=== PATIENT | female | born 1990 | race Caucasian/White ===

== ENCOUNTER 2020-08-23 15:25 | Outpatient (CLI) | payer BC, SELFPAY ==
--- NOTE | ~2020-08-23 | US_ITS ---
EXAMINATION: US OB <= 14 weeks fetus DATE: 08/23/2020 15:58 INDICATION: Routine care and dating of late first trimester . TECHNIQUE: Real-time pelvic ultrasound utilizing both a transvaginal and transabdominal probe was pe rformed. The interpreting radiologist was not present for the study. COMPARISON: None. FINDINGS: The uterus measures 12.5 x 5.9 x 6.2 cm. There is an intrauterine gestational sac. A yolk sac and fe hayes pole are identified. The crown rump length measures 2.1 cm, which correlates with an estimated ge stational age of 8 weeks and 5 days. heart motion is identified measuring 178 beats per minute (bpm) by M-mode Doppler. The right ovary measures 2.5 x 2.3 x 3.0 cm. The left ovary measures 3.0 x 1.6 x 2.5 cm. Vascular ivon w with both arterial and venous waveforms identified in both the left and right ovaries. There is no free fluid in the pelvis. IMPRESSION: 1. Single living fetus with heart rate of 178 bpm. 2. Gestational age by ultrasound of 8 weeks 5 day(s) +/- 5 day(s) with ultrasound estimated date of delivery (ROBERT) of 03/30/2021. Reviewed, dictated and finalized at location A. IMPRESSION: 1. Single living fetus with heart rate of 178 bpm. 2. Gestational age by ultrasound of 8 weeks 5 day(s) +/- 5 day(s) with ultraso und estimated date of delivery (ROBERT) of 03/30/2021.
== END 2020-08-23 15:26 | disposition home or self-care (01) ==
PROVIDERS: PCP Pediatrics; Visit Provider Obstetrics & Gynecology
DX: Z34.91 Encounter for supervision of normal pregnancy, unspecified, first trimester (principal); Z3A.08 8 weeks gestation of pregnancy
CPT/HCPCS: 76801

== ENCOUNTER 2020-11-26 15:34 | Outpatient (CLI) | payer BC, SELFPAY ==
--- NOTE | ~2020-11-26 | US_ITS ---
EXAMINATION: US OB /maternal detail DATE: 11/26/2020 17:03 INDICATION: survey TECHNIQUE: Multiple obstetric sonographic images performed. FINDINGS: No prior studies for comparison. There is a single living fetus in breech presentation. The placenta is posterior without placenta pr evia. Amniotic fluid volume is normal. JARRELL measures 17.3 cm. cardiac activity and movement is noted with a heart rate of 141 beats per minute. The following anatomy was identified as normal: 4 chamber heart 3 vessel cord cord insertion kidneys urinary bladder stomach spine diaphragm ventricles cisterna magna cerebellum The following biometric data were obtained: BPD: 53mm corresponds to gestational age 22 weeks 0 days. Head circumference: 212 mm corresponds to gestational age 23 weeks 2 days. Abdominal circumference: 188 mm corresponds to gestational age 23 weeks 4 days. Femur length: 45 mm corresponds to gestational age 24 weeks 5 days. Head circumference to abdominal circumference ratio: 1.13 (normal range for expected gestational age is 1.05-1.21). Estimated weight: 637 grams +/- 96 grams using Hadlock method, greater than 97th percentile. IMPRESSION: 1: Single living intrauterine with an estimated gestational age of 22weeks 2days by initial ultrasound measurements, with an EDC of 03/30/2021 in breech presentation. 2. Normal survey. 3: Accelerated growth with estimated weight greater than 97th percentile. Reviewed, dictated and finalized at location A. IMPRESSION: 1: Single living intrauterine with an estimated gestational age of 22 weeks 2days by initial ultrasound measurements, with an EDC of 03/30/2021 in br eech presentation. 2. Normal survey. 3: Accelerated growth with estimated weight greater than 97th perc entile.
== END 2020-11-26 15:35 | disposition home or self-care (01) ==
PROVIDERS: PCP Obstetrics & Gynecology; Visit Provider Physician Assistant
DX: Z34.82 Encounter for supervision of other normal pregnancy, second trimester (principal); Z3A.22 22 weeks gestation of pregnancy
CPT/HCPCS: 76805

== ENCOUNTER 2021-01-17 07:30 | Outpatient (RCR) | payer BC, SELFPAY ==
[2021-01-17] MEDS: RHO(D) IMMUNE GLOBULIN 300 MCG/2 ML SYRINGE IM (11:59)
== END 2021-04-16 23:59 | disposition home or self-care (01) ==
LOC: ANHLAB 07:30
PROVIDERS: PCP Obstetrics & Gynecology; Visit Provider Physician Assistant
DX: Z29.13 Encounter for prophylactic Rho(D) immune globulin (principal); O36.0190 Maternal care for anti-D [Rh] antibodies, unspecified trimester, not applicable or unspecified; Z3A.00 Weeks of gestation of pregnancy not specified
CPT/HCPCS: 36415; 85461; 90384; 96372; J2790

== ENCOUNTER 2021-01-17 10:35 | Outpatient (CLI) | payer BC, SELFPAY ==
--- NOTE | ~2021-01-17 | US_ITS ---
EXAMINATION: US OB follow up DATE: 01/17/2021 11:28 INDICATION: Routine care during third trimester TECHNIQUE: Real-time ultrasound of the pelvis was performed. The interpreting radiologist was not pre sent for the study. COMPARISON: 11/26/2020 FINDINGS: There is a single living fetus in vertex presentation. The placenta is posterior. car diac activity and movement are noted. heart rate is 154 beats per minute (bpm). The amnio tic fluid index is 13.9 cm which is normal. The following biometric data were obtained: Biparietal diameter (BPD): 7.3 cm; head circumference (HC): 27.9 cm; abdominal circumference (AC): 25 .6 cm; femur length (FL): 5.5 cm. These measurements are concordant. Estimated weight is 1434 g +/- 215 g, which correlates with the 35th percentile when 03/30/2021 is used as estimated date of delivery. As single measurements, these parameters are each equal to the following estimated gestational ages w ith ranges of +/- 2 standard deviations: BPD: 29 weeks 4 days ( 27 weeks 2 days - 31 weeks 5 days). HC: 30 weeks 4 days ( 27 weeks 4 days - 33 weeks 4 days). AC: 29 weeks 6 days ( 27 weeks 5 days - 32 weeks 0 days). FL: 29 weeks 1 days ( 27 weeks 1 days - 31 weeks 2 days). estimated gestational age based solely on measurements from this exam is 29 weeks 6 days +/- 2 weeks 1 days. IMPRESSION: 1. Single living fetus in vertex presentation. 2. Estimated weight is 1434 g +/- 215 g, which correlates with the 35th percentile when 021 is used as estimated date of delivery. Reviewed, dictated and finalized at location A. IMPRESSION: 1. Single living fetus in vertex presentation. 2. Estimated weight is 1434 g +/- 215 g, which correlates with the 35th p ercentile when 03/30/2021 is used as estimated date of delivery.
== END 2021-01-17 10:36 | disposition home or self-care (01) ==
PROVIDERS: PCP Obstetrics & Gynecology; Visit Provider Physician Assistant
DX: Z34.93 Encounter for supervision of normal pregnancy, unspecified, third trimester (principal); Z3A.29 29 weeks gestation of pregnancy
CPT/HCPCS: 76816

== ENCOUNTER 2021-03-26 19:35 | Inpatient (IN) | payer BC, SELFPAY ==
--- NOTE | 2021-03-26 20:00 | PC.NURSE ---
Addendum entered by Libertad Willett RN 03/27/21 02:40: PT STATES THIS IS DUE TO DR SHEPARD NO LONGER SEEING CLIENTS. Original Note: PT STATES THAT PT HAS NOT BEEN TO AN OB APPOINTMENT IN 3 WEEKS.
[2021-03-26 21:30] VITALS: BMI 32.5
[2021-03-26 21:45] LABS: Basophils Percent Auto 0.2 % (0.2-1.2); Eosinophils Absolute Auto 0.1 K/mm3 (0-0.3); Eosinophils Percent Auto 0.7 % (0-4.4); Hemoglobin 10.2 g/dL (12.0-15.0); Immature Granulocyte Absolute 0.04 K/mm3 (0.00-0.031); Immature Granulocyte Percent A 0.4 % (0-0.5); Immature Platelet Fraction Pct 15.2 % (0.9-11.2); Lymphocytes Absolute Auto 1.91 K/mm3 (0.9-3.2); Lymphocytes Percent Auto 18.3 % (18.3-44.2); Mean Corpuscular HGB Conc 32.9 g/dl (32-36); Mean Corpuscular Hemoglobin 27.5 pg (26-34); Mean Corpuscular Volume 83.6 fl (80-100); Mean Platelet Volume 13.1 fl (7.4-10.4); Monocytes Absolute Auto 0.6 K/mm3 (0.1-0.6); Monocytes Percent Auto 6.1 % (2.6-8.5); Neutrophils Absolute Auto 7.8 K/mm3 (1.3-6.7); Neutrophils Percent Auto 74.3 % (45.5-73.1); Platelet Count Result 142 k/mm3 (150-375); Red Blood Count 3.71 M/mm3 (4.2-5.4); Red Cell Distribution Width 16.1 % (11.5-14.5); White Blood Count 10.5 K/mm3 (4.5-10.0)
[2021-03-27] VITALS (99 sets, daily range): BP systolic 64–166; BP diastolic 34–128; PULSE 47–113; RESP 16–18; TEMP 36.6–37; O2SAT 80–100
[2021-03-27] MEDS: CALCIUM CARBONATE (TUMS) 500 MG (200 MG ELEMENTAL) PO ×2 (00:15→07:22)
--- NOTE | 2021-03-27 00:36 | LDADM ---
This patient, Fozia Cunningham, was admitted to Labor/Delivery/Recovery 107 on 03/26/21 at 19:35. Plans for labor, pain management and were discussed with patient. Patient/family oriented to hospital policies and general routines including ID bracelet, bed and alarms, visiting hours, pain management, procedures, bathroom and other care routines, personal items, smoking policy, room service/diet and guest tray routines, security routines, and visiting hours. Patient/Family are encouraged to report perceived risks to care and to ask questions if they do not understand what they are told or what they should do. See OBIX for further documentation.
--- NOTE | 2021-03-27 02:36 | PC.NURSE ---
PT STATES PT LAST SMOKED MARAJUANA ON 03/25.
[2021-03-27] MEDS: AMPICILLIN 2 GM/NS 100 ML 2 GM/100 ML BAG IVPB (03:15)
[2021-03-27] MEDS: LACTATED RINGERS 1,000 ML 125 ML IV CONT ×2 (03:20→10:05)
[2021-03-27 03:58] LABS: Amphetamine Screen Urine Negative (Negative); Barbiturate Screen Urine Negative (Negative); Benzodiazepines Screen Urine Negative (Negative); Cannabinoid Screen Urine Positive (Negative); Cocaine Screen Urine Negative (Negative); Methadone Screen Urine Negative (Negative); Opiate Screen Urine Negative (Negative); Phencyclidine Screen Urine Negative (Negative)
[2021-03-27] MEDS: OXYTOCIN 30 UNITS/NS 500 ML 30 UNITS/500 ML BAG IV CONT (05:47)
[2021-03-27 06:58] LABS: Rapid Plasma Reagin Non-Reactive (NonReactive)
[2021-03-27] MEDS: AMPICILLIN 1 GM/NS 50 ML 1 GM/50 ML BAG IVPB ×2 (07:22→11:36)
--- NOTE | 2021-03-27 10:03 | WPDANESEPP ---
Anes - Eval Pre Procedure Procedure: labor epidural Date/Time: 03/27/21 10:03 Pre Op Diagnosis: Contractions Patient Data Age: 30 Gender: F Height: 1.75 m Weight: 100 kg Last Vital Signs Temp 36.7 C 03/27/21 09:30 Pulse 61 03/27/21 10:01 BP 134/82 03/27/21 10:01 Allergies Allergy/AdvReac Type Severity Reaction Status Date / Time clove Allergy Hives Verified 03/16/21 14:44 Home Medications Medication Instructions Recorded Confirmed Type PNV cmb#95-ferrous fumarate-FA 1 tablet PO DAILY 03/16/21 03/16/21 History [] Laboratory Tests 03/26/21 03/26/21 03/26/21 21:35 21:35 21:35 WBC 10.5 K/mm3 H K/mm3 (4.5-10.0) RBC 3.71 M/mm3 L M/mm3 (4.2-5.4) Hgb 10.2 g/dL L g/dL (12.0-15.0) Hct 31.0 % L % (37.0-47.0) MCV 83.6 fl fl (80-100) MCH 27.5 pg pg (26-34) MCHC 32.9 g/dl g/dl (32-36) RDW 16.1 % H % (11.5-14.5) Plt Count 142 k/mm3 L k/mm3 (150-375) MPV 13.1 fl H fl (7.4-10.4) Immature Gran % (Auto) 0.4 % % (0-0.5) Neut % (Auto) 74.3 % H % (45.5-73.1) Lymph % (Auto) 18.3 % % (18.3-44.2) Teller % (Auto) 6.1 % % (2.6-8.5) Eos % (Auto) 0.7 % % (0-4.4) Baso % (Auto) 0.2 % % (0.2-1.2) Lymph # (Auto) 1.91 K/mm3 K/mm3 (0.9-3.2) Teller # (Auto) 0.6 K/mm3 K/mm3 (0.1-0.6) Eos # (Auto) 0.1 K/mm3 K/mm3 (0-0.3) Baso # (Auto) 0.0 K/mm3 K/mm3 (0.0-0.1) Abs Immat Gran (auto) 0.04 K/mm3 H K/mm3 (0.00-0.031) Absolute Neuts (auto) 7.8 K/mm3 H K/mm3 (1.3-6.7) Absolute Nucleated RBC 0.0 K/mm3 K/mm3 (0.0-0.012) Nucleated RBC % 0.0 % % (0.0-0.2) % Immature Plt Fraction 15.2 % H % (0.9-11.2) Urine Opiates Screen Urine Methadone Screen Ur Barbiturates Screen Ur Phencyclidine Scrn Ur Amphetamine Screen U Benzodiazepines Scrn Urine Cocaine Screen U Cannabinoids Screen RPR Non-reactive (NonReactive) Blood Type A Negative Antibody Screen Negative 03/27/21 03:24 WBC RBC Hgb Hct MCV MCH MCHC RDW Plt Count MPV Immature Gran % (Auto) Neut % (Auto) Lymph % (Auto) Teller % (Auto) Eos % (Auto) Baso % (Auto) Lymph # (Auto) Teller # (Auto) Eos # (Auto) Baso # (Auto) Abs Immat Gran (auto) Absolute Neuts (auto) Absolute Nucleated RBC Nucleated RBC % % Immature Plt Fraction Urine Opiates Screen Negative (Negative) Urine Methadone Screen Negative (Negative) Ur Barbiturates Screen Negative (Negative) Ur Phencyclidine Scrn Negative (Negative) Ur Amphetamine Screen Negative (Negative) U Benzodiazepines Scrn Negative (Negative) Urine Cocaine Screen Negative (Negative) U Cannabinoids Screen Positive A (Negative) RPR Blood Type Antibody Screen Patient hx anesthesia problems: none Family hx anesthesia problems: none Results Review: All pre-operative results and documents have been reviewed as part of the pre-operative evaluation. [facility] Family History Family History Other No pertinent family history Social History Social History Smoking packs per day: 0.5 Smoking cigarettes per day: 10.0 Years smoked: 10 Smoking pack-years: 5.00 Smoking status: Current every day smoker Substance use: current Spiritual care concerns: No Exam Day of Procedure 03/27/21 10:03 Patient weight: obese Heart: regular rate and rhythm Lungs: clear to auscul
--- NOTE | 2021-03-27 13:30 | WPDOBADMIT ---
Obstetrics - Admit Note Admission Note: record reviewed. No pertinent additions to the history and/or any subsequent changes in the physical findings that are not consistent with the expected course of the were found. No care for last 3 weeks do to staffing manager not in current practice. Patient has prenatals reviewed with patient. AROm clear fluid. Additions to the history and/or subsequent changes in the physical findings follow. None.
--- NOTE | 2021-03-27 13:31 | P.PCNOB_ITS ---
OB - Delivery Note Procedure Delivery date: 03/27/21 Procedure: events: Labor Induction Intrapartal events: None Induction method: AROM and per pitocin protocol Route of delivery: Laceration Description: None Specimen: No Quantitative Blood Loss (ml): 150 Anesthesia type: Epidural Disposition: floor Rosamond Baby Date of : 03/27/21 Time of : 13:08 Weeks of gestation at delivery: 39 gender: Female Weight (pounds): 7 Weight (ounces): 5 presentation: vertex position: Left Occiput Anterior Placenta delivery description: Spontaneous cord vessel description: 3 Vessels, Nuchal Cord, Loose and Clamped/Cut score one minute: 8 score five minutes: 9
[2021-03-27] MEDS: OXYTOCIN 30 UNITS/NS 500 ML 30 UNITS/500 ML BAG 125 UNITS IV CONT (13:51)
[2021-03-27] MEDS: BENZOCAINE 20% AER SPR (*SP) 56 GM CAN 1 SPRAY TOPICAL (15:04)
[2021-03-27] MEDS: WITCH HAZEL 40 PADS 1 PAD TOPICAL (15:04)
--- NOTE | 2021-03-27 16:46 | OBPPTRN ---
1629-Patient transferred to post room #280 via wheelchair. Support person present. Oriented to unit, room, information board, rooming in, admission packet and security measures. Patient verbalizes understanding.
[2021-03-27] MEDS: IBUPROFEN 600 MG TABLET PO (23:01)
[2021-03-28] VITALS: BP 115/64; PULSE 72; RESP 18; TEMP 36.7
[2021-03-28 03:45] VITALS: BP 112/63; PULSE 65; RESP 16; TEMP 36.9
[2021-03-28 05:16] LABS: Hemoglobin 8.7 g/dL (12.0-15.0)
[2021-03-28 08:00] VITALS: BP 137/89; PULSE 58; RESP 18; TEMP 36.3; O2SAT 99
[2021-03-28] MEDS: IBUPROFEN 600 MG TABLET PO (08:49)
[2021-03-28] MEDS: DOCUSATE SODIUM 100 MG CAPSULE PO (08:50)
[2021-03-28] MEDS: MULTIVIT/MIN/PREN/FOL AC/IRON TABLET 1 TAB PO (08:50)
[2021-03-28] MEDS: POLYSACCHARIDE IRON COMPLEX 150 MG CAPSULE PO (08:50)
--- NOTE | 2021-03-28 10:03 | PM.OBPNVD ---
OB - PN: Subj Subjective Date/time seen: 03/28/21 10:03 doing well no complaints. desires home OB - PN: Obj Data Labs CBC & Chem 7: 03/28/21 03:36 Labs: Laboratory Results - last 24 hr 03/28/21 03/28/21 03:36 03:36 Hgb 8.7 L Hct 28.0 L Blood Type A Negative Antibody Screen TNP OB - PN A/P Assessment and Plan (1) (normal spontaneous vaginal delivery): Code(s): O80 - Encounter for full-term uncomplicated delivery Status: Acute Assessment and Plan: d/c home f/u in office Time Spent With Patient Time: Total time spent is greater than 50% in coordination of care (as documented) at patient's floor/unit and/or counseling patient: Exam Narrative: ff below umbilicus
--- NOTE | 2021-03-28 10:07 | PM.OBDSVD ---
DS: Admitting Diagnosis Discharge Date 03/28/21 Admitting Diagnosis induction of labor OB - DS: Summary OB Procedures : None OB Procedures Intrapartum: Spontaneous Vag Delivery OB Procedures: : None Peripartum Data Delivery Method: Natural Vaginal complications: none Time Spent with Patient Time attestation: Total time spent providing and/or coordinating discharge services: DS: Data Data Completed and Pending Labs on day of discharge: Labs from last 24 hours 03/28/21 03/28/21 03:36 03:36 Hgb 8.7 L Hct 28.0 L Blood Type A Negative Antibody Screen TNP Screen Pending Baby's Blood Type Pending Baby's DARION Pending Doses of RhIg Required Pending Discharge Plan Discharge Attending physician on discharge: Narinder Encinas Discharging Clinician: Narinder Encinas Patient Disposition: Home, Self-Care Activity: may shower and pelvic rest Diet: regular Patient Instructions: Antibiotic Form Stand Alone Forms: General Discharge Information Follow-up/Referrals: Narinder Encinas MD [Physician] - Discharge Medications: Continued PNV cmb#95-ferrous fumarate-FA [] 28 mg iron- 800 mcg Tablet 1 tablet PO DAILY RF: 0 Date of admission: 03/26/21 19:35 Primary Care Provider: PHYSICIAN,PUBLIC INFORMATION COORDINATOR Admitting Provider: Narinder Encinas Attending physician on admission: Narinder Encinas Condition: Stable
--- NOTE | 2021-03-28 11:03 | PCCCNOTE ---
Addendum entered by MAURA Breaux 03/28/21 13:36: 1340: CANTS form completed and faxed to [facility] local office ( ). Original Note: Met with pt. and FOJacobo Jacintoon at bedside. Pt. tested positive for THC on her UDS. Baby UDS was negative; no meconium ordered. Pt. anticipated to discharge this afternoon. Pt. reports she, , three other children, and FOB will be living with her father in [place]. Pt. reports having a large support system and has all necessary supplies. Pt. reports being established with both [employer] and [employer]. Pt. reports having a case opened with [facility] in Jun 2020 and just got her three children back in her custody March 12. Pt. reports they are in a program of 6 months of aftercare with [facility]. resources provided. Report made with Quintin Dominique at [facility] - Intake ID #[id number]. Quintin reports it is okay to discharge baby today and their current rn case mgr with [facility] will do follow up at their home. [address]
--- NOTE | 2021-03-28 12:06 | WPDANLDPN2 ---
Anes-Prog Note L&D Date/Time: 03/28/21 12:06 Comfortable throughout: labor and delivery Neuraxial method: epidural Epidural/Spinal procedure site: clean & non-tender Neuro status: Neuro function grossly intact. Cardiovascular status: normal Respiratory status: normal Airway patency: baseline Mental status: baseline Post-Op hydration status: normal Vital Signs: Last Vital Signs Temp 36.3 C L 03/28/21 08:00 Pulse 58 L 03/28/21 08:00 Resp 18 03/28/21 08:00 BP 137/89 03/28/21 08:00 Pulse Ox 99 03/28/21 08:00 Pain score (VAS): 05/13 I/O: Intake & Output 03/27/21 03/28/21 03/28/21 23:59 07:59 15:59 Intake Total 240 Output Total 125 Balance -125 240 Post-procedural complaints: none Patient feedback: Patient satisfied with anesthetic care.
[2021-03-28 12:35] VITALS: BP 143/91; PULSE 66; RESP 18; TEMP 36.2; O2SAT 100
[2021-03-30 08:15] VITALS: BP 129/76; PULSE 71; RESP 20; TEMP 36.4; O2SAT 100
== END 2021-03-28 15:00 | disposition home or self-care (01) | DRG 560 ==
LOC: ANHLDR 20:37 → ANHOB2 03-27 16:32
PROVIDERS: Admitting Provider Obstetrics & Gynecology; Visit Provider Obstetrics & Gynecology
DX: O99.334 Smoking (tobacco) complicating childbirth (principal); F17.210 Nicotine dependence, cigarettes, uncomplicated; O69.81X0 Labor and delivery complicated by cord around neck, without compression, not applicable or unspecified; Z3A.39 39 weeks gestation of pregnancy; Z37.0 Single live birth
CPT/HCPCS: 36415; 80307; 85014; 85018; 85025; 85055; 85460; 85461; 86592; 86850; 86900; 86901; 90384; A9270; J0290; J2590; J2790; J2795; J7120

== ENCOUNTER 2025-01-21 08:36 | Emergency (ER) | payer BC, SELFPAY ==
--- NOTE | ~2025-01-21 | XR_ITS ---
X-rays right ankle Indication: Injury Comparison: None Technique: 4 views right ankle Findings/Impression: 1. Nondisplaced avulsion fracture lateral malleolar tip. Overlying soft tissue swelling. 2. No other fracture noted. 3. Ankle mortise maintained. Reviewed, dictated and finalized at location R.
[2025-01-21 08:49] VITALS: BP 117/73; PULSE 63; RESP 16; TEMP 36.4; O2SAT 100
--- NOTE | 2025-01-21 11:13 | ED_ITS ---
HPI - General Adult General Chief complaint: Extremity Injury, Lower Stated complaint: right ankle pain Time Seen by Provider: 01/21/25 08:52 History of Present Illness HPI narrative: 34-year-old female presents to the emergency department for evaluation for right ankle pain. Patient was playing softball when she rolled her ankle while running. Patient does have swelling of the lateral ankle. Patient denies striking head denies any loss of consciousness. Patient denies any proximal tib-fib pain. Patient denies striking head denies loss consciousness. Related Data Home Medications ?Medication ?Instructions ?Recorded ?Confirmed ?Last Taken ?Type vit no.95-ferrous 1 tablet PO DAILY 03/16/21 03/16/21 Unknown History fumarate 28 mg-folic acid 800 mcg tablet () Allergies Allergy/AdvReac Type Severity Reaction Status Date / Time clove Allergy Hives Verified 01/21/25 09:07 Review of Systems Review of Systems: All systems reviewed & are unremarkable except as noted in HPI and below PMFSH Family History Family History Other No pertinent family history Social History Social History Smoking packs per day: 0.5 Smoking cigarettes per day: 10.0 Years smoked: 10 Smoking pack-years: 5.00 Smoking status: Current every day smoker Substance use: current Spiritual care concerns: No Exam Narrative: APPEARANCE: Well appearing, no pain, no distress, well-nourished. HEAD: normocephalic, atraumatic. EYES: PERRLA/EOMI, conjunctivae clear. NOSE: Normal no drainage EARS:TMS clear with good light reflex. THROAT: Pharynx clear, no exudate. NECK: Supple. No adenopathy, no masses. RESPIRATORY: Airway patent, respirations nonlabored. Clear to auscultation bi laterally, no rales, rhonchi, wheezing. CARDIOVASCULAR: Regular rate and rhythm without murmurs rubs or gallops. ABDOMINAL: Soft, nontender, nondistended, normal bowel sounds MUSCULOSKELETAL: Right lateral ankle tenderness to palpation NEURO: Alert. Cranial nerves II through XII intact. Good gait. Good coordination SKIN: Warm, dry. Normal Color Course Vital Signs Vital signs: Vital Signs Temperature 97.6 F 01/21/25 08:49 Pulse Rate 63 01/21/25 08:49 Respiratory Rate 16 01/21/25 08:49 Blood Pressure 117/73 01/21/25 08:49 Pulse Oximetry 100 01/21/25 08:49 Oxygen Delivery Room Air 01/21/25 08:49 Temperature 97.6 F 01/21/25 08:49 Pulse Rate 64 01/21/25 12:01 Respiratory Rate 18 01/21/25 12:01 Blood Pressure 138/72 01/21/25 12:01 Pulse Oximetry 100 01/21/25 12:01 Oxygen Delivery Room Air 01/21/25 08:49 Medical Decision Making MDM Narrative Medical decision making narrative: 34-year-old female presents to the emergency department for evaluation for right ankle pain. X-ray was concerning for avulsion fracture. Patient does have of lateral ankle ecchymosis with no proximal tib-fib tenderness to palpation. Patient denies any other pain or injury. Patient's leg is neurovascularly intact. I do suspect an ankle strain resulting in an avulsion fracture. Patient was placed in a short-leg splint provided crutches for nonweightbearing. Patient was updated the results of her workup. Patient left close follow-up with Orthopedics. All questions concerns were addressed. Differential Diagnosis Differential Diagnosis: Ankle sprain, ankle fracture Vital Signs Vital Signs: Vital Signs Temperature 97.6 F 01/21/25 08:49 Pulse Rate 63 01/21/25 08:49 Respiratory Rate 16 01/21/25 08:49 Blood Pressure 117/73 01/21/25 08:49 Pulse Oximetry 100 01/21/25 08:49 Oxygen Delivery Room Air 01/21/25 08:49 Temperature 97.6 F 01/21/25 08:49 Pulse Rate 64 01/21/25 12:01 Respiratory Rate 18 01/21/25 12:01 Blood Pressure 138/72 01/21/25 12:01 Pulse Oximetry 100 01/21/25 12:01 Oxygen Delivery Room Air 01/21/25 08:49 Imaging Data Radiologist's impression: X-rays right ankle Indication: Injury Comparison: None Technique: 4 views right ankle Findings/Impression: 1. Nondisplaced avulsion fracture lateral malleolar tip. Overlying soft tissue swelling. 2. No other fracture noted. 3. Ankle mortise maintained. Discharge Plan Discharge Clinical Impression: Avulsion fracture of ankle Patient Disposition: Home Condition: Stable Instructions: Antibiotic Form, Ankle Fracture (DC), Crutch Instructions (ED), Splint Care (ED) Additional Instructions: Splint care as directed. Crutches for nonweightbearing. Tylenol and ibuprofen for pain control. Have close follow-up with Orthopedics. If you have any worsening symptoms then please call or return to the emergency department. Patient Language: Salvadorean Prescriptions: No Action PNV no.95-ferrous fumarate-FA [] 28 mg iron- 800 mcg Tablet 1 tablet PO DAILY Follow-up/Referrals: Trino Fletcher MD [Physician, Orthopedics] PHYSICIAN,[facility]ER [Primary Care Provider, Internal Medicine]
[2025-01-21] MEDS: ACETAMINOPHEN 500 MG TABLET 1000 MG PO (11:25)
[2025-01-21] MEDS: IBUPROFEN 600 MG TABLET PO (11:26)
[2025-01-21 12:01] VITALS: BP 138/72; PULSE 64; RESP 18; O2SAT 100
== END 2025-01-21 12:02 | disposition home or self-care (01) ==
PROVIDERS: Emergency Provider Emergency Medicine
DX: S82.64XA Nondisplaced fracture of lateral malleolus of right fibula, initial encounter for closed fracture (principal); X50.0XXA Overexertion from strenuous movement or load, initial encounter; F17.210 Nicotine dependence, cigarettes, uncomplicated
CPT/HCPCS: 29515; 73610; 99284; A9270

== ENCOUNTER 2025-02-02 00:05 | Emergency (ER) | payer BC, SELFPAY ==
--- NOTE | ~2025-02-02 | CT_ITS ---
CT HEAD NON-CONTRAST Clinical History: new onset seizures Comparison: None Technique: Unenhanced axial images skull base to vertex Coronal, sagittal reformats CT images acquired with automatic exposure control for dose reduction DLP: 530 mGy-cm Findings: Sulci, ventricles: Unremarkable. No intracerebral hemorrhage. No evidence acute territorial infarct. No mass effect, midline shift. Bony calvarium intact. Visualized paranasal sinuses: Clear. Mastoid air cells: Clear. IMPRESSION: 1. No acute intracranial findings. Reviewed, dictated and finalized at location R.
[2025-02-02 00:02] VITALS: BP 134/90; PULSE 88; RESP 15; TEMP 36.8; O2SAT 100
[2025-02-02 00:41] VITALS: BP 144/102; PULSE 88; RESP 12; TEMP 36.4; O2SAT 100
--- NOTE | 2025-02-02 01:05 | ED.SEIZURE ---
HPI - Seizure General Chief Complaint: Seizure Stated Complaint: seizure Time Seen by Provider: 02/02/25 00:53 Source: patient and EMS Mode of arrival: EMS Limitations: no limitations History of Present Illness HPI Narrative: This is a 34-year-old female with history of polysubstance abuse who presents to the ED via EMS and law enforcement for seizure activity. Per EMS, patient was being arrested and was in the back of the car when she had seizure activity the lasted for unknown time period. Patient reports that she has been having seizures for the past month that are new for her. No prior seizures prior to this. At this time, patient does report a headache. She is a meth user and last use 2 days ago. Also smokes marijuana. Denies any other drug or substance abuse. She does not drink alcohol regularly. No known medical history. Related Data Home Medications ?Medication ?Instructions ?Recorded ?Confirmed ?Last Taken ?Type vit no.95-ferrous 1 tablet PO DAILY 03/16/21 03/16/21 Unknown History fumarate 28 mg-folic acid 800 mcg tablet () Allergies Allergy/AdvReac Type Severity Reaction Status Date / Time clove Allergy Hives Verified 02/02/25 00:09 Review of Systems Review of Systems: Gen.: Denies fevers or chills Eyes: Denies eye pain or visual change ENT: Denies congestion Respiratory: Denies shortness of breath or cough CV: Denies chest pain or palpitations GI: Denies abdominal pain nausea, emesis or diarrhea denies burning, urgency, frequency or hematuria Musculoskeletal: Denies back pain or muscle pain Neuro: Denies numbness, tingling, weakness or focal weakness Skin: Denies rash Except as documented, all other systems reviewed and negative [facility] Family History Family History Other No pertinent family history Social History Social History Smoking packs per day: 0.5 Smoking cigarettes per day: 10.0 Years smoked: 10 Smoking pack-years: 5.00 Smoking status: Current every day smoker Substance use: current Spiritual care concerns: No Exam Narrative: APPEARANCE: No acute distress, nontoxic, resting in bed EYES: EOMI HEENT: Normocephalic, atraumatic, OMM RESPIRATORY: No respiratory distress Clear to auscultation bilaterally with no rhonchi wheezing or rales. CARDIOVASCULAR: Regular rate and rhythm without murmurs rubs or gallops. ABDOMINAL: Soft, nontender, nondistended, no rebound or guarding MUSCULOSKELETAl: Moves all extremities. No clubbing, cyanosis or edema. NEURO: Awake and alert. Following commands, speech normal, no focal deficits SKIN:: Warm, dry. No rashes lesions or abrasions PSYCHIATRIC: Normal affect/mood, Course Vital Signs Vital signs: Vital Signs Temperature 98.3 F 02/02/25 00:02 Pulse Rate 88 02/02/25 00:02 Respiratory Rate 15 02/02/25 00:02 Blood Pressure 134/90 02/02/25 00:02 Pulse Oximetry 100 02/02/25 00:02 Oxygen Delivery Room Air 02/02/25 00:02 Temperature 97.5 F L 02/02/25 00:41 Pulse Rate 85 02/02/25 02:49 Respiratory Rate 14 02/02/25 02:49 Blood Pressure 126/79 02/02/25 02:49 Pulse Oximetry 99 02/02/25 02:49 Oxygen Delivery Room Air 02/02/25 02:48 MDM - Seizure MDM Narrative Medical decision making narrative: 34-year-old female presenting for seizure activity. Her initial evaluation, patient was in no acute distress, afebrile, hemodynamically stable. She had a nonfocal neuro exam. Heart lungs clear. Abdomen soft and nontender. On further discussion with the patient, the seizures were new within the last month and they had never been evaluated. She had a mild leukocytosis at 11.7. CMP without significant abnormalities. CT head showed no acute process. Patient was given 1 g Keppra. She will be given a prescription for Keppra. She was given a referral to Neurology for further evaluation and management of her seizures. Patient was agreeable to this plan. Given strict return precautions. Differential Diagnosis Differential diagnosis: Likely generalized seizure, new onset seizure, epileptic seizure and other (PNES) Medical Records Attestation: I reviewed the patient's medical records. Lab Data Attestation: I reviewed the patient's lab results. 02/02/25 01:26 02/02/25 01:44 Labs: Lab Results 02/02/25 02/02/25 Range/Units 01: 01:44 WBC 11.7 H (4.5-10.0) K/mm3 RBC 4.31 (4.2-5.4) M/mm3 Hgb 11.8 L D (12.0-15.0) g/dL Hct 36.7 L (37.0-47.0) % MCV 85.2 (80-100) fl MCH 27.4 (26-34) pg MCHC 32.2 (32-36) g/dl RDW 15.2 H (11.5-14.5) % Plt Count 177 (150-375) k/mm3 MPV 12.2 H (7.4-10.4) fl Immature Gran % (Auto) Not Reportable Neut % (Auto) Not Reportable Lymph % (Auto) Not Reportable [place] % (Auto) Not Reportable Eos % (Auto) Not Reportable Baso % (Auto) Not Reportable Lymph # (Auto) Not Reportable [place] # (Auto) Not Reportable Eos # (Auto) Not Reportable Baso # (Auto) Not Reportable Abs Immat Gran (auto) Not Reportable Absolute Neuts (auto) Not Reportable Absolute Nucleated RBC Not Reportable Total Counted 100 Neutrophils % (Manual) 73 (46-73) % Band Neutrophils % 8 H (0-6) % Lymphocytes % (Manual) 13 L (18-44) % Monocytes % (Manual) 5 (3-9) % Eosinophils % (Manual) 1 (0-4) % Nucleated RBC % Not Reportable Abs Neuts (Manual) 9.47 H (1.3-6.7) K/mm3 Abs Lymphs (Manual) 1.52 (1.1-4.5) K/mm3 Abs Monocytes (Manual) 0.58 (0.1-0.90) K/mm3 Absolute Eos (Manual) 0.11 (0.02-0.50) K/mm3 Platelet Estimate Adequate (Adequate) % Immature Plt Fraction 8.1 (0.9-11.2) % Hypochromasia 1+ Schistocytes None seen Sodium 136 L (137-145) mmol/L Potassium 4.4 (3.4-5.0) mmol/L Chloride 106 (98-107) mmol/L Carbon Dioxide 26 (22-30) mmol/L Anion Gap 4 (4-12) mmol/L BUN 18 H (7-17) mg/dL Creatinine 1.00 (0.7-1.0) mg/dL Estim Creat Clear Calc 84 ml/min Estimated GFR > 60 (59 - ) Glucose 83 (65-110) mg/dL Lactic Acid 0.7 (0.7-2.0) mmol/L Calcium 9.2 (8.4-10.2) mg/dL Total Bilirubin 0.3 (0.2-1.3) mg/dL AST 23 (14-36) U/L ALT 22 (6-35) U/L Alkaline Phosphatase 67 (38-126) U/L Total Protein 7.5 (6.3-8.2) g/dL Albumin 4.2 (3.5-5.1) g/dL TSH 1.510 (0.465-4.680) uIU/mL Imaging Data Attestation: I personally reviewed and interpreted this imaging study as follows: Radiologist's impression: CT head: No acute intracranial hemorrhage. No midline shift or mass effect. The territorial gibson-white matter differentiation is maintained throughout. The ventricles and sulci are commensurate with age Discharge Plan Discharge Clinical Impression: New onset seizure Patient Disposition: Home Condition: Stable Instructions: Antibiotic Form, New-Onset Seizure in Adults (ED) Additional Instructions: You may have had a seizure today. You were started on a seizure medication called Keppra, take this as prescribed. CT head showed no masses or bleeds. Follow-up with Dr. Hogan, neurology, in the next few days for re-evaluation. Return to the ED for any new or worsening symptoms. Patient Language: Japanese Prescriptions: New levetiracetam [Keppra] 500 mg tablet 500 mg PO BID Qty: 60 0RF No Action PNV no.95-ferrous fumarate-FA [] 28 mg iron- 800 mcg Tablet 1 tablet PO DAILY Follow-up/Referrals: John Hogan MD [Physician, Neurology] PHYSICIAN,[facility] [Primary Care Provider, Internal Medicine] Arvin Villeda MD [Physician, Family Practice]
[2025-02-02] MEDS: SODIUM CHLORIDE 0.9% IV 1,000 ML 999 ML IV CONT (01:27)
[2025-02-02] MEDS: KETOROLAC 30 MG/ML VIAL (*BKC) IV PUSH (01:28)
[2025-02-02 01:36] LABS: Hematocrit 36.7 % (37.0-47.0); Hemoglobin 11.8 g/dL (12.0-15.0); Immature Platelet Fraction Pct 8.1 % (0.9-11.2); Mean Corpuscular HGB Conc 32.2 g/dl (32-36); Mean Corpuscular Hemoglobin 27.4 pg (26-34); Mean Corpuscular Volume 85.2 fl (80-100); Platelet Count Result 177 k/mm3 (150-375); Red Blood Count 4.31 M/mm3 (4.2-5.4); White Blood Count 11.7 K/mm3 (4.5-10.0)
[2025-02-02] MEDS: levETIRAcetam 1000MG/NACL100ML 1,000 MG/100 ML BAG 400 MG IVPB (02:02)
[2025-02-02 02:04] LABS: Alanine Aminotransferase 22 U/L (6-35); Albumin Level 4.2 g/dL (3.5-5.1); Alkaline Phosphatase 67 U/L (38-126); Anion Gap 4 mmol/L (4-12); Aspartate Amino Transferase 23 U/L (14-36); Bilirubin,Total 0.3 mg/dL (0.2-1.3); Blood Urea Nitrogen 18 mg/dL (7-17); Calcium 9.2 mg/dL (8.4-10.2); Carbon Dioxide 26 mmol/L (22-30); Chloride 106 mmol/L (98-107); Estimated CRCL calculation 84 ml/min; Estimated Glomerular Filt Rate > 60; Glucose 83 mg/dL (65-110); Potassium 4.4 mmol/L (3.4-5.0); Sodium 136 mmol/L (137-145); Total Protein 7.5 g/dL (6.3-8.2)
[2025-02-02 02:07] LABS: Band Neutrophils Percent 8 % (0-6); Eosinophils Absolute Manual 0.11 K/mm3 (0.02-0.50); Eosinophils Percent Manual 1 % (0-4); Lymphocytes Absolute Manual 1.52 K/mm3 (1.1-4.5); Lymphocytes Percent Manual 13 % (18-44); Monocytes Absolute Manual 0.58 K/mm3 (0.1-0.90); Monocytes Percent Manual 5 % (3-9); Neutrophils Absolute Manual 9.47 K/mm3 (1.3-6.7); Neutrophils Percent Manual 73 % (46-73); Total Cells Counted 100
[2025-02-02 02:08] LABS: Hypochromasia 1+; Schistocytes None Seen
[2025-02-02 02:39] LABS: Thyroid Stimulating Hormone 1.510 uIU/mL (0.465-4.680)
[2025-02-02 02:49] VITALS: BP 126/79; PULSE 85; RESP 14; O2SAT 99
== END 2025-02-02 02:51 | disposition home or self-care (01) ==
PROVIDERS: Emergency Provider Student in an Organized Health Care Education/Training Program
DX: R56.9 Unspecified convulsions (principal); F17.210 Nicotine dependence, cigarettes, uncomplicated; F15.90 Other stimulant use, unspecified, uncomplicated; F12.90 Cannabis use, unspecified, uncomplicated
CPT/HCPCS: 36415; 70450; 80053; 83605; 84443; 85025; 85055; 96365; 96375; 99284; J1885; J1953; J7030